=== PATIENT | male | born 1960 | race Caucasian/White ===

== ENCOUNTER 2021-11-10 15:52 | Emergency (ER) | payer OTHER ==
[~2021-11-10] VITALS: Ht 177.8 cm; Wt 81.7 kg
[~2021-11-10 15:52] MED LIST: AMLODIPINE BES2.5 MG PO; LISINOPRIL10 MG PO
--- OUTSIDE RECORDS SUMMARY | 2021-11-10 15:56 | XMS ---
PreManage Notification: MARTINA LANDERS Security Quotation Checker Events No recent Security Events currently on file [facility] There are no care providers on record at this time. Stephanie has no Care Guidelines for this patient. Nita VISIT COUNT (12 MO.) 1 ZEINA Villegas TOTAL 1 NOTE: Visits indicate total known visits. ED/UCC VISIT TRACKING (12 MO.) 11/10/2021 15:55 ZEINA Hewitt OR TYPE: Emergency COMPLAINT: - PUNCTURE WOUND INPATIENT VISIT TRACKING (12 MO.) No inpatient visits to display in this time frame [email or web address]
[2021-11-10] MEDS ORDERED: CYCLOBENZAPRINE5 MG PO (19:22)
[2021-11-10] MEDS ORDERED: TRAMADOL HCL50 MG PO (19:22)
[2021-11-10] MEDS ORDERED: GABAPENTIN300 MG PO (19:22)
[2021-11-10] MEDS ORDERED: MELOXICAM15 MG PO (19:23)
[2021-11-10] MEDS ORDERED: HYDROCODON-ACE1 EA10 PO (20:45)
== END 2021-11-10 21:02 | disposition home or self-care (01) ==
LOC: ED 15:52
DX: S61.230A Puncture wound without foreign body of right index finger without damage to nail, initial encounter (principal); Z23 Encounter for immunization; I10 Essential (primary) hypertension; E78.5 Hyperlipidemia, unspecified; F17.200 Nicotine dependence, unspecified, uncomplicated; Z79.899 Other long term (current) drug therapy; Z79.891 Long term (current) use of opiate analgesic; W22.8XXA Striking against or struck by other objects, initial encounter
CPT/HCPCS: 73140; 90471; 90714; 99283-25; A9270